=== PATIENT | female | born 1940 | race Two or more races ===

== ENCOUNTER 2024-01-09 10:12 | Inpatient (IN) | payer MEDICARE, OTHER ==
[~2024-01-09] VITALS: Ht 157.5 cm; Wt 58.4 kg
--- NOTE | 2024-01-09 10:21 | ED.PDOC ---
GI ASSESSMENT HPI Comments 83 y.o female with PMH of HTN, CKD, and thyroid disease, presents to the ED for a chief complaint of rectal bleeding and pain that started 2 weeks ago s/p lifting a heavy object. Patient reports bleeding is constant when using the restroom, described as red and is painful, considered sharp in nature. Patient denies any abdominal pain, fever, chills, nausea, vomiting, diarrhea. 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 History Family History Family History: Reviewed,noncontributory to illness, No family hx of Cancer, No family hx of DM, No family hx of Heart micky, No family hx of HTN, No family hx ofKidney micky, No family hx of Liver micky, No family hx of Lung micky, No family hx of Stroke Social History Smoker: Non-Smoker Alcohol: Denies ETOH Use Drugs: Denies Drug Use Lives In: Home Constitutional: denies: chills, diaphoresis, fatigue, fever, malaise, sweats, weakness, others EENTM: denies: blurred vision, double vision, ear bleeding, ear discharge, ear drainage, ear pain, ear ringing, eye pain, eye redness, hearing loss, mouth pain, mouth swelling, nasal discharge, nose bleeding, nose congestion, nose pain, photophobia, tearing, throat pain, throat swelling, voice changes, others Respiratory: denies: cough, hemoptysis, orthopnea, SOB at rest, shortness of breath, SOB with excertion, stridor, wheezing, others Cardiovascular: denies: chest pain, dizzy spells, diaphoresis, Dyspnea on exertion, edema, irregular heart beat, left arm pain, lightheadedness, palpitations, PND, syncope, others Gastrointestinal: reports: rectal bleeding, rectal pain; denies: abdomen distended, abdominal pain, blood streaked bowels, constipated, diarrhea, dysphagia, difficulty swallowing, hematemesis, melena, nausea, poor appetite, poor fluid intake, vomiting, others Genitourinary: denies: abnormal vagina bleeding, burning, dyspareunia, dysuria, flank pain, frequency, hematuria, incontinence, pain, , vagina discharge, urgency, others Neurological: denies: dizziness, fainting, headache, left sided numbness, left sided weakness, numbness, paresthesia, pre-existing deficit, right sided numb ness, right sided weakness, seizure, speech problems, tingling, tremors, weakness, others Musculoskeletal: denies: back pain, gout, joint pain, joint swelling, muscle pain, muscle stiffness, neck pain, others Integumetry: denies: bruises, change in color, change in hair/nails, dryness, laceration, lesions, lumps, rash, wounds, others Allergic/Immunocompromised: denies: Difficulty Healing, Frequent Infections, Hives, Itching, others Hematologic/Lymphatic: denies: anemia, blood clots, easy bleeding, easy bruising, swollen glands, others Endocrine: denies: excessive hunger, excessive sweating, excessive thirst, excessive urination, flushing, intolerance to cold, intolerance to heat, unexplained weight gain, unexplained weight loss, others Psychiatric: denies: anxiety, bipolar disorder, depression, hopeless, panic disorder, schizophrenia, sleepless, suicidal, others All Other Systems: Reviewed and Negative Physical Exam General Appearance: Mild Distress HEENT: Normal ENT Inspection, Pharynx Normal, TMs Normal Neck: Full Range of Motion, Non-Tender, Normal, Normal Inspection Respiratory: Chest Non-Tender, Lungs Clear, No Accessory Muscle Use, No Respiratory Distress, Normal Breath Sounds Cardiovascular: No Edema, No JVD, No Murmur, No Gallop, Normal Peripheral Pulses, Regular Rate/Rhythm Breast Exam: Deferred Gastrointestinal: No Organomegaly, Non Tender, No Pulsatile Mass, Normal Bowel Sounds, Soft Genitalia: Deferred Pelvic: Deferred Rectal: Deferred Extremities: No calf tenderness, Normal capillary refill, Normal inspection, Normal range of motion, Non-tender, No pedal edema Musculoskeletal : Apperance: Normal Neurologic: Alert, cathode ray tube assembler II-XII nml as Tested, No Motor Deficits, Normal Affect, Normal Mood, No Sensory Deficits Cerebellar Function: Normal Reflexes: Normal Skin: Dry, Normal Color, Warm Lymphatic: No Adenopathy Was a procedure done? Was a procedure done?: No GI differential Dx Differential Diagnosis: Esophageal rupture, Gastritis/PUD, Impaction, Esophageal Varicies X-Ray, Labs, Meds, VS Vital Signs Date Time Temp Pulse Resp B/P (MAP) Pulse Ox O2 Delivery O2 Flow Rate FiO2 01/09/24 11:30 99.0 66 16 168/90 (116) 97 99.0 01/09/24 11:30 66 16 97 01/09/24 10:25 99.4 78 18 150/91 (110) 95 Lab Test 01/09/24 11:20 Range/Units White Blood Count 6.5 4.4-10.8 10^3/uL Red Blood Count 4.75 4.0-5.20 10^6/uL Hemoglobin 14.7 12.2-16.2 g/dL Hematocrit 42.9 36.0-46.0 % Mean Corpuscular Volume 90.4 80.0-100.0 fL Mean Corpuscular Hemoglobin 30.9 28.0-32.0 pg Mean Corpuscular Hemoglobin Concent 34.2 32.0-36.0 g/dL Red Cell Distribution Width 13.2 11.8-14.3 % Platelet Count 279 140-450 10^3/uL Mean Platelet Volume 7.2 6.9-10.8 fL Neutrophils (%) (Auto) 71.9 37.0-80.0 % Lymphocytes (%) (Auto) 21.4 10.0-50.0 % Monocytes (%) (Auto) 5.7 0.0-12.0 % Eosinophils (%) (Auto) 0.5 0.0-7.0 % Basophils (%) (Auto) 0.5 0.0-2.0 % Neutrophils # (Auto) 4.7 1.6-8.6 10 ^3/uL Lymphocytes # (Auto) 1.4 0.4-5.4 10 ^3/uL Monocytes # (Auto) 0.4 0-1.3 10 ^3/uL Eosinophils # (Auto) 0 0-0.8 10 ^3/uL Basophils # (Auto) 0 0-0.2 10 ^3/uL Nucleated Red Blood Cells 0.0 % Prothrombin Time 10.7 9.3-11.8 sec Prothrombin Time INR 1.01 0.9-1.15 Activated Partial Thromboplast Time 25.4 24.5-34.5 SEC Sodium Level 142 136-145 mmol/L Potassium Level 4.6 3.5-5.1 mmol/L Chloride Level 106 98-107 mmol/L Carbon Dioxide Level 32 H 20-31 mmol/L Anion Gap 4 L 5-15 Blood Urea Nitrogen 19 9-23 mg/dL Creatinine 0.78 0.550-1.02 mg/dL Glomerular Filtration Rate Calc 76 >90 mL/min BUN/Creatinine Ratio 24.4 H 10.0-20.0 Serum Glucose 94 74-106 mg/dL Calcium Level 9.9 8.7-10.4 mg/dL Exam: CT CT AB PEL WO CON-NO ORAL OR IV IMPRESSION: 1. No acute abdominal or pelvic finding. 2. Left adnexal cystic lesion measuring 1.5 cm. 3. Multiple bilateral renal cysts. Nonobstructing punctate left intrarenal calculus. The CBC is within normal limits The chemistry panel is within normal limits. At this time, the patient is being admitted to the hospitalist Images Reviewed?: Images reviewed and evaluated by me Time of 1ST Reevaluation: 10:19 Reevaluation 1ST: Unchanged Patient Education/Counseling: Diagnosis, Treatment, Prognosis Family Education/Counseling: No Family Present Departure 1 Departure Time of Disposition: 12:32 Impression: Primary Impression: Lower GI bleed Disposition: ADMITTED INPATIENT Admit to: Med Surg Condition: Fair Critical Care Note Critical Care Time?: No Stability Stability form required: Yes Unstable for transfer: ED Physician Assesment (Clinical assesment) I personally scribed for LAURENT HUNT MD ([email or web address]) on 01/09/24 at 10:21. Electronically submitted by Mary Beth West ([email or web address]). I personally scribed for LAURENT HUNT MD ([email or web address]) on 01/09/24 at 12:13. Electronically submitted by Mary Beth West ([email or web address]). LAURENT HUNT MD Jan 09, 2024 10:21
[2024-01-09 11:37] LABS: Basophils # (auto) 0 10 ^3/uL (0-0.2); Basophils % (auto) 0.5 % (0.0-2.0); Eosinophils # (auto) 0 10 ^3/uL (0-0.8); Eosinophils % (auto) 0.5 % (0.0-7.0); Hematocrit 42.9 % (36.0-46.0); Hemoglobin 14.7 g/dL (12.2-16.2); Lymphocytes # (auto) 1.4 10 ^3/uL (0.4-5.4); Lymphocytes % (auto) 21.4 % (10.0-50.0); Mean Corpuscular Hemoglobin 30.9 pg (28.0-32.0); Mean Corpuscular Hgb Conc. 34.2 g/dL (32.0-36.0); Mean Corpuscular Volume 90.4 fL (80.0-100.0); Monocytes # (auto) 0.4 10 ^3/uL (0-1.3); Monocytes % (auto) 5.7 % (0.0-12.0); Neutrophils # (auto) 4.7 10 ^3/uL (1.6-8.6); Neutrophils % (auto) 71.9 % (37.0-80.0); Platelet Count (auto) 279 10^3/uL (140-450); Red Blood Cells 4.75 10^6/uL (4.0-5.20); Red Cell Distribution Width 13.2 % (11.8-14.3); White Blood Cell 6.5 10^3/uL (4.4-10.8)
[2024-01-09 11:46] LABS: Chloride 106 mmol/L (98-107); Potassium 4.6 mmol/L (3.5-5.1); Sodium 142 mmol/L (136-145)
[2024-01-09 11:47] LABS: Anion Gap 4 (5-15); Calcium 9.9 mg/dL (8.7-10.4); Carbon Dioxide 32 mmol/L (20-31)
--- NOTE | 2024-01-09 11:47 | DVH ---
Exam: CT CT AB PEL WO CON-NO ORAL OR IV History: pain Comparison Study: None available at time of dictation. TECHNIQUE: Multidetector CT of the abdomen and pelvis was performed from lung bases to ischial tubero sities. Imaging was performed without IV contrast using axial images. Coronal and sagittal reformats were obtained from the axial data set by the technologist. Radiation Dose Information: CT Dose: CTDI volume is 5.58 mGy. Dose-length product is 299.37 mGy*cm FINDINGS: Evaluation of solid organs is limited due to lack of intravenous contrast use. Findings: Lung Bases: No acute or significant lung base finding. Normal heart size. Coronary artery calcificat ions. No pleural or pericardial effusion. Liver: The liver is normal in size. No focal lesions. Gallbladder and Biliary Tree: The gallbladder is unremarkable. No biliary ductal dilatation. Spleen: Unremarkable Pancreas: The pancreas is grossly normal in appearance. Adrenal Glands: Unremarkable Kidneys: Multiple right and left left renal cysts. The largest is in the lower pole of the left kidn ey measuring 4.4 cm. There is left renal atrophy. No hydronephrosis. Nonobstructing punctate left ne phrolithiasis. GI Tract: The stomach is grossly normal in appearance. Small bowel and colon are normal in caliber an d distribution. The appendix is not visualized; however, no secondary findings of acute appendicitis identified. Peritoneal cavity: No pneumoperitoneum. No ascites. Lymphadenopathy: No mesenteric, retroperitoneal or periportal lymphadenopathy. Abdominal Wall and Mesentery: Unremarkable. Vasculature: The visualized abdominal aorta is normal in size and caliber. Evaluation of abdominal a nd pelvic vessels is limited due to lack of intravenous contrast. There are atherosclerotic calcifica tions in the aorta. Pelvic Organs: 1.5 cm left adnexal cystic lesion. Uterus is grossly unremarkable for patient's stated age. Urinary Bladder: Grossly unremarkable for degree of distention. Musculoskeletal: No aggressive focal bony lesions, acute fractures or dislocation. S shaped scoliosis . Soft tissues: Unremarkable IMPRESSION: 1. No acute abdominal or pelvic finding. 2. Left adnexal cystic lesion measuring 1.5 cm. 3. Multiple bilateral renal cysts. Nonobstructing punctate left intrarenal calculus. Radiation optimization: All CT scans at this facility use at least one of these dose optimization judit hniques: automated exposure control mA and/or kV adjustment per patient size (includes targeted exam s where dose is matched to clinical indication) or iterative reconstruction.
[2024-01-09 11:52] LABS: BUN/Creatinine Ratio 24.4 (10.0-20.0); Blood Urea Nitrogen 19 mg/dL (9-23); Glucose 94 mg/dL (74-106)
[2024-01-09 12:00] LABS: INR 1.01 (0.9-1.15); Partial Thromboplastin Time 25.4 SEC (24.5-34.5); Prothrombin Time 10.7 sec (9.3-11.8)
[2024-01-09] MEDS: cloNIDine HCL 0.1 MG TAB PO ONE (14:41)
[2024-01-09] MEDS ORDERED: MORPHINE SULFATE INJ 2 MG/ml SYRG IV PRN ×2 (21:30)
[2024-01-09] MEDS ORDERED: NITROGLYCERIN 0.4 MG SL TAB SL PRN (21:30)
[2024-01-09] MEDS ORDERED: ACETAMINOPHEN 325 MG TAB PO PRN (21:30)
[2024-01-09] MEDS ORDERED: LABETALOL HCL 20 MG/4 ML VL IV PRN (21:30)
[2024-01-09] MEDS ORDERED: ONDANSETRON HCL 4 MG/2 ML VIAL IV PRN (21:30)
[2024-01-09] MEDS ORDERED: DOCUSATE SOD 100 MG CAP PO PRN (21:30)
--- NOTE | 2024-01-09 21:56 | DVHHPRES ---
History of Present Illness Resident Creating Document: DAVE BUCKLEY RESIDENT History of Present Illness EDWIN VALENTIN is a 83 years old female with a PMH of HTN, CKD, HLD, CHF and thyroid disorder status post thyroidectomy presented to the ED with the chief complaints of rectal bleeding and pain during defecation for weeks prior to admission. Patient reported her bleeding is constant while defecation which is bright light, burning to sharp pain without abdominal pain, fever, chills, nausea, vomiting, diarrhea and other acute associated symptoms. Past Medical History HTN, CKD, HLD, CHF and thyroid disorder status post thyroidectomy Past Surgical History Thyroidectomy Family History Reviewed, noncontributory Past Social History Lives with family. Denies smoking, alcohol and other drug abuse Review of Systems Constitutional: No: Fever, Chills, Sweats, Weakness, Malaise, Other Eyes: No: Pain, Vision change, Conjunctivae inflammation, Eyelid inflammation, Other, Redness ENT: No: Ear pain, Ear discharge, Nose pain, Nose discharge, Nose congestion, Mouth pain, Mouth swelling, Throat pain, Throat swelling, Other Respiratory: No: Cough, Dry, Shortness of breath, SOB with excertion, Wheezing, Hemoptysis, Pleuritic Pain, Sputum, Wheezing, Other Cardiovascular: No: Chest Pain, Palpitations, Orthopnea, Paroxysmal Noc. Dyspnea, Edema, Lt Headedness, Other Gastrointestinal: Other (Rectal bleeding and rectal pain) Genitourinary: No Dysuria, No Frequency, No Incontinence, No Hematuria, No Retention, No Other Musculoskeletal: No: other, neck pain, shoulder pain, arm pain, back pain, hand pain, leg pain, foot pain Skin: No: Rash, Lesions, Jaundice, Bruising, Other Neurological: No: Weakness, Numbness, Incoordination, Change in speech, Confusion, Seizures, Other Allergies: Coded Allergies: Acetaminophen (Verified Allergy, Severe, 01/09/24) Hydrocodone (Verified Allergy, Severe, 01/09/24) Medications Current Medications Medications Dose Ordered Sig/Stevan Route Start Time Stop Time Status Last Admin Dose Admin Sodium Chloride 10 ml Q8HR IV 01/09/24 22:00 Acetaminophen 325 mg Q4HP PRN PO 01/09/24 21:30 Hold Ondansetron HCl 4 mg Q4HP PRN IV 01/09/24 21:30 Docusate Sodium 100 mg BIDPRN PRN PO 01/09/24 21:30 Morphine Sulfate 2 mg Q4HPRN PRN IV 01/09/24 21:30 Hold Nitroglycerin 0.4 mg Q5MINP PRN SL 01/09/24 21:30 Morphine Sulfate 2 mg Q30M PRN IV 01/09/24 21:30 Hold Labetalol HCl 10 mg Q2HPRN PRN IV 01/09/24 21:30 Exam Vital Signs Vital Signs Date Time Temp Pulse Resp B/P (MAP) Pulse Ox O2 Delivery O2 Flow Rate FiO2 01/09/24 18:55 98.2 59 16 122/76 (91) 96 98.2 01/09/24 16:52 Room Air Exam Pt is lying on bed General Appearance: Alert, Oriented X3, Cooperative, Not in acute distress HEENT: Atraumatic, Mucous membranes moist/pink Respiratory: Clear to auscultation, Normal air movement, No added sounds Cardiovascular: Regular rate, Normal S1, Normal S2, No murmurs Abdominal: Active bowel sounds, Soft, no distention, no tenderness Extremities: No edema, Normal pulses, No tenderness/swelling Skin: No Significant rash, except past surgical scars Neuro: Normal speech, sensorimotor deficits none Psych/Mental Status: Mental status NL, Mood NL Rectal Exam: Small globe likely tag(hemorrhoid) visible on the Anus which is slight purple, irreducible, rectal tone is normal, no masses palpable inside the rectum, collected stool for the FOB Nurse was there as sharperone during examination Labs/Xrays Labs Test 01/09/24 11:20 Range/Units White Blood Count 6.5 4.4-10.8 10^3/uL Red Blood Count 4.75 4.0-5.20 10^6/uL Hemoglobin 14.7 12.2-16.2 g/dL Hematocrit 42.9 36.0-46.0 % Mean Corpuscular Volume 90.4 80.0-100.0 fL Mean Corpuscular Hemoglobin 30.9 28.0-32.0 pg Mean Corpuscular Hemoglobin Concent 34.2 32.0-36.0 g/dL Red Cell Distribution Width 13.2 11.8-14.3 % Platelet Count 279 140-450 10^3/uL Mean Platelet Volume 7.2 6.9-10.8 fL Neutrophils (%) (Auto) 71.9 37.0-80.0 % Lymphocytes (%) (Auto) 21.4 10.0-50.0 % Monocytes (%) (Auto) 5.7 0.0-12.0 % Eosinophils (%) (Auto) 0.5 0.0-7.0 % Basophils (%) (Auto) 0.5 0.0-2.0 % Neutrophils # (Auto) 4.7 1.6-8.6 10 ^3/uL Lymphocytes # (Auto) 1.4 0.4-5.4 10 ^3/uL Monocytes # (Auto) 0.4 0-1.3 10 ^3/uL Eosinophils # (Auto) 0 0-0.8 10 ^3/uL Basophils # (Auto) 0 0-0.2 10 ^3/uL Nucleated Red Blood Cells 0.0 % Prothrombin Time 10.7 9.3-11.8 sec Prothrombin Time INR 1.01 0.9-1.15 Activated Partial Thromboplast Time 25.4 24.5-34.5 SEC Sodium Level 142 136-145 mmol/L Potassium Level 4.6 3.5-5.1 mmol/L Chloride Level 106 98-107 mmol/L Carbon Dioxide Level 32 H 20-31 mmol/L Anion Gap 4 L 5-15 Blood Urea Nitrogen 19 9-23 mg/dL Creatinine 0.78 0.550-1.02 mg/dL Glomerular Filtration Rate Calc 76 >90 mL/min BUN/Creatinine Ratio 24.4 H 10.0-20.0 Serum Glucose 94 74-106 mg/dL Calcium Level 9.9 8.7-10.4 mg/dL Assessment/Plan Assessment/Plan # Rectal bleeding likely External hemorrhoids # Thrombosed hemorrhoid -CT abdominal pelvis showed no acute findings -monitor lab -clear liquid diet and protonix -encouraged fiber diet and laxatives -Rectal Exam showed Small globe likely tag(hemorrhoid) visible on the Anus which is slight purple, irreducible, rectal tone is normal, no masses palpable inside the rectum, -collected stool for the FOB # hypertensive urgency -continuously monitor blood pressure -given 1 dose of clonidine -continue home medication Clear liquid diet Protonix No VTE PPX as patient is bleeding Reconcile home meds Goals of care discussed with the patient for more than 27 minutes: Full code status Case discussed with Dr. Darnell, patient and nurse Plan discussed with: Patient, Other (RN) My Orders Orders - DAVE BUCKLEY Procedure Category Date Status Time Admit ADMIT 01/09/24 Transmitted 21:19 Allergies [place] 01/09/24 In Process 21:19 Code Status CODE 01/09/24 Transmitted 21:19 Sodium Chloride Lock PHA 01/09/24 In Process (Saline Lock Ns) 22:00 Acetaminophen Tablet PHA 01/09/24 In Process (Tylenol Tablet) 21:30 Ondansetron Hcl PHA 01/09/24 In Process (Zofran) 21:30 Docusate Sodium PHA 01/09/24 In Process Capsule (Colace 21:30 Morphine Sulfate PHA 01/09/24 In Process Injection 21:30 Nitroglycerin PHA 01/09/24 In Process Sublingual (Ntrostat 21:30 Morphine Sulfate PHA 01/09/24 In Process Injection 21:30 Oxygen By Nasal RT 01/09/24 Transmitted Cannula 21:19 Stat Ekg For Chest [place] 01/09/24 In Process Pain 21:19 Notify Md Of Changes [facility] 01/09/24 In Process From Base 21:19 Rv Body Mechanic For [facility] 01/09/24 In Process 24 Hours 21:19 Emergency Dysrhythmia [facility] 01/09/24 In Process Protocol 21:19 Rhythm Strips Once [facility] 01/09/24 In Process Every Shift 21:19 Labetalol Hcl PHA 01/09/24 In Process (Labetalol Hcl) 21:30 Drug Screen LAB 01/09/24 Logged 21:50 Hemoglobin A1c LAB 01/09/24 Logged 21:50 Vitamin D, 25-Hydroxy LAB 01/09/24 Logged 21:50 Vitamin B12 LAB 01/09/24 Logged 21:50 Urinalysis LAB 01/09/24 Logged 21:50 Thyroid Stimulating LAB 01/09/24 Logged Hormone 21:50 Stool Occult Blood LAB 01/09/24 Logged 21:50 B-Type Natriuretic LAB 01/09/24 Logged Peptide 21:52 Pantoprazole PHA 01/10/24 Transmitted (Protonix) 10:00 Date of Service: Jan 09, 2024 Billing Provider: HALEIGH DARNELL MD Common Visit Codes: 84735-QIBMKZD INP/OBS CARE (HIGH) Secondary Visit Codes: 70933-[id number] CARE PLAN 30 MINUTES DAVE BUCKLEY RESIDENT Jan 09, 2024 21:56 HALEIGH DARNELL MD Jan 10, 2024 10:20
[2024-01-09] MEDS: SODIUM CHLOR 0.9% PF (SALINE LOCK) 10ML VIAL/SYR IV SCH (22:09)
[2024-01-10] VITALS (8 sets, daily range): BP systolic 116–159; BP diastolic 67–77; PULSE 54–76; RESP 15–20; TEMP 97.4–98.9; O2SAT 92–100
[2024-01-10] MEDS: PANTOPRAZOLE 40 MG/10 ML VIAL INJ IV SCH (10:00)
[2024-01-10] MEDS ORDERED: LEVO50TA7 PO (10:51)
[2024-01-10] MEDS: LEVOTHYROXINE SODIUM 50 MCG TAB PO ONE (12:40)
[2024-01-10] MEDS: LISINOPRIL 5 MG TAB PO ONE (12:41)
--- NOTE | 2024-01-10 12:49 | DVH ---
CHEST RADIOGRAPH Indication:Pneumonia Technique: Single frontal view of the chest was obtained COMPARISON: None FINDINGS: Lines and Tubes: None Lungs: Clear Pleura: No effusion. No pneumothorax. Cardiomediastinal contours: Tortuous descending thoracic aorta. Vascular calcifications of the aorta . Bones: Unremarkable IMPRESSION: No acute disease.
--- NOTE | 2024-01-10 14:13 | DVH ---
INDICATION: Cystic mass TECHNIQUE: Multiple real-time grayscale transabdominal sonographic images along with color and duplex Doppler of the uterus and ovaries were obtained. COMPARISON: CT abdomen pelvis 01/09/2024 FINDINGS: The uterus measures 4.3 x 3.1 x 2.1 cm. The endometrial stripe measures 0.5 cm. The bilateral ovaries are not definitively identified. In the region of the left adnexa, there is a c ystic structure measuring 1.7 x 1.2 x 1.5 cm. No free fluid is identified. IMPRESSION: 1. Limited evaluation, with nonvisualization of the bilateral ovaries. 2. Left adnexal cystic lesion measuring 1.7 cm. 3. Endometrium measuring 0.5 cm in thickness, upper limit of normal for a postmenopausal patient. HS:Y
[2024-01-10 14:33] LABS: Albumin 4.1 g/dL (3.2-4.8); Bilirubin, Total 1.4 mg/dL (0.2-1.0); Total Protein 6.6 g/dL (5.7-8.2)
[2024-01-10 15:03] LABS: Bilirubin, Direct 0.2 mg/dL (<0.3)
[2024-01-10 15:30] LABS: Urine Bacteria None Seen /hpf (None Seen)
[2024-01-10 15:36] LABS: Urine Blood Negative /uL (Negative); Urine Clarity Clear (Clear); Urine Color Light-Yellow (Yellow); Urine Protein, UAD Negative (Negative); Urine Specific Gravity 1.007 (1.001-1.035); Urine Urobilinogen Normal (Negative); Urine WBC <1 /hpf (0 - 5)
[2024-01-10 15:50] LABS: Amphetamine Screen, Urine Neg (NEGATIVE); Barbiturate Scree,Urine Neg (NEGATIVE); Benzodiazephine Screen, Urine Neg (NEGATIVE); Cannabinoid Screen, Urine Neg (NEGATIVE); Cocaine Screen, Urine Neg (NEGATIVE); Opiate Scree,Urine Neg (NEGATIVE); Phencyclidine Screen, Urine Neg (NEGATIVE)
--- NOTE | 2024-01-10 15:52 | DVHINCON2 ---
Date of service: Jan 10, 2024 Family History: Thyroid disease Allergies: Coded Allergies: Acetaminophen (Verified Allergy, Severe, 01/09/24) Hydrocodone (Verified Allergy, Severe, 01/09/24) Home Meds Reported Medications Levothyroxine Sodium (Levothyroxine Sodium) 50 Mcg Tab, 50 MCG PO QAM for 30 Days, MCG 01/10/24 Current Medications Current Medications Medications (Trade) Dose Ordered Sig/Stevan Route PRN Reason Start Time Stop Time Status Last Admin Sodium Chloride (Saline Lock Ns) 10 ml Q8HR IV 01/09/24 22:00 01/10/24 14:00 Acetaminophen (Tylenol Tablet) 325 mg Q4HP PRN PO MILD PAIN (1-3 PAIN SCALE) 01/09/24 21:30 01/10/24 11:42 DC Ondansetron HCl (Zofran) 4 mg Q4HP PRN IV NAUSEA / VOMITING 01/09/24 21:30 Docusate Sodium (Colace Capsule) 100 mg BIDPRN PRN PO FOR CONSTIPATION 01/09/24 21:30 Morphine Sulfate 2 mg Q4HPRN PRN IV SEVERE PAIN (7-10 PAIN SCALE) 01/09/24 21:30 Hold Nitroglycerin (Ntrostat Sublingual) 0.4 mg Q5MINP PRN SL FOR CHEST PAIN 01/09/24 21:30 Morphine Sulfate 2 mg Q30M PRN IV FOR CHEST PAIN 01/09/24 21:30 Hold Labetalol HCl (Labetalol HCl) 10 mg Q2HPRN PRN IV SBP>150 01/09/24 21:30 01/10/24 11:42 DC Pantoprazole Sodium (Protonix) 40 mg DAILY IV 01/10/24 10:00 Lisinopril (Zestril Tablet) 10 mg DAILY PO 01/11/24 10:00 Hydralazine HCl (Apresoline Injection) 10 mg Q6HP PRN IV SBP>150 01/10/24 12:30 Levothyroxine Sodium (Synthroid Tablet) 50 mcg QAM@0600 PO 01/11/24 06:00 Vital Signs Vital Signs Date Time Temp Pulse Resp B/P (MAP) Pulse Ox O2 Delivery O2 Flow Rate FiO2 01/10/24 13:00 98.9 76 17 140/71 (94) 92 98.9 01/10/24 08:00 Room Air* 0 21 Labs/Diagnostic Data Labs Test 01/10/24 14:36 01/10/24 13:56 01/10/24 11:15 01/10/24 06:00 Range/Units Urine Color Light-yellow Yellow Urine Clarity Clear Clear Urine pH 6.0 5.0-9.0 Urine Specific [place] 1.007 1.001-1.035 Urine Protein Negative Negative Urine Ketones Negative Negative Urine Blood Negative Negative /uL Urine Nitrite Negative Negative Urine Bilirubin Negative Negative Urine Urobilinogen Normal Negative mg/dL Urine Leukocyte Esterase Negative Negative /uL Urine RBC <1 0 - 4 /hpf Urine WBC <1 0 - 5 /hpf Urine Squamous Epithelial Cells None seen <5 /hpf Urine Bacteria None seen None Seen /hpf Urine Glucose Normal Normal mg/dL Total Bilirubin 1.4 H 0.2-1.0 mg/dL Direct Bilirubin 0.2 <0.3 mg/dL Aspartate Amino Transferase (AST) 30 13-40 U/L Alanine Aminotransferase (ALT) 16 7-40 U/L Alkaline Phosphatase 59 46-116 U/L Total Protein 6.6 5.7-8.2 g/dL Albumin 4.1 3.2-4.8 g/dL Hemoglobin A1c 5.5 <5.7 % A1C Vitamin B12 Level 434 211-911 pg/mL Vitamin D 25-Hydroxy 34.9 30.0-100 ng/mL Thyroid Stimulating Hormone (TSH) 4.32 0.55-4.78 uIU/mL Stool Occult Blood Negative Negative Stool Occult Blood Sample #3 Negative Test 01/09/24 11:20 Range/Units White Blood Count 6.5 4.4-10.8 10^3/uL Red Blood Count 4.75 4.0-5.20 10^6/uL Hemoglobin 14.7 12.2-16.2 g/dL Hematocrit 42.9 36.0-46.0 % Mean Corpuscular Volume 90.4 80.0-100.0 fL Mean Corpuscular Hemoglobin 30.9 28.0-32.0 pg Mean Corpuscular Hemoglobin Concent 34.2 32.0-36.0 g/dL Red Cell Distribution Width 13.2 11.8-14.3 % Platelet Count 279 140-450 10^3/uL Mean Platelet Volume 7.2 6.9-10.8 fL Neutrophils (%) (Auto) 71.9 37.0-80.0 % Lymphocytes (%) (Auto) 21.4 10.0-50.0 % Monocytes (%) (Auto) 5.7 0.0-12.0 % Eosinophils (%) (Auto) 0.5 0.0-7.0 % Basophils (%) (Auto) 0.5 0.0-2.0 % Neutrophils # (Auto) 4.7 1.6-8.6 10 ^3/uL Lymphocytes # (Auto) 1.4 0.4-5.4 10 ^3/uL Monocytes # (Auto) 0.4 0-1.3 10 ^3/uL Eosinophils # (Auto) 0 0-0.8 10 ^3/uL Basophils # (Auto) 0 0-0.2 10 ^3/uL Nucleated Red Blood Cells 0.0 % Prothrombin Time 10.7 9.3-11.8 sec Prothrombin Time INR 1.01 0.9-1.15 Activated Partial Thromboplast Time 25.4 24.5-34.5 SEC Sodium Level 142 136-145 mmol/L Potassium Level 4.6 3.5-5.1 mmol/L Chloride Level 106 98-107 mmol/L Carbon Dioxide Level 32 H 20-31 mmol/L Anion Gap 4 L 5-15 Blood Urea Nitrogen 19 9-23 mg/dL Creatinine 0.78 0.550-1.02 mg/dL Glomerular Filtration Rate Calc 76 >90 mL/min BUN/Creatinine Ratio 24.4 H 10.0-20.0 Serum Glucose 94 74-106 mg/dL Calcium Level 9.9 8.7-10.4 mg/dL B-Type Natriuretic Peptide 57.66 0-100 pg/mL Assessment [id number] PROLAPSED THROMBOSED HEMORRHOID ATTEMPT MANUAL REDUCTION CLOSE OBSERVATION AVOID CONSTIPATION LORI SUMIT CONSIDER SURGERY BASED ON ONGOING EVAL Plan discussed with: Patient DIANNE MENESES MD Jan 10, 2024 15:52
--- NOTE | 2024-01-10 19:03 | DVHPNRES ---
Progress Note Date Seen: Jan 10, 2024 Resident Creating Document: SUKHJINDER BHATT AMAN Has the PT tested + for MRSA If YES, has PT been informed?: No Medical Necessity Reason Pt with a Central, PICC or Fol: No Subjective Review of Systems EDWIN VALENTIN is an 83-year-old female with a PMH of HTN, CKD, HLD, CHF, and thyroid disorder status post thyroidectomy. She presented to the ED with the chief complaints of rectal bleeding and pain during defecation for the past 2 weeks. According to the patient, she had one episode of bright bleeding during stool passage 2 weeks ago but has had pain in the perineal area, which increases during defecation. The patient denies abdominal pain, fever, chills, nausea, vomiting, diarrhea, and other acute associated symptoms. Past Medical History: HTN, CKD, HLD, CHF, and thyroid disorder status post thyroidectomy Past Surgical History: Thyroidectomy Family History: Noncontributory Social History: Lives alone at home, denies smoking, alcohol, and any other drug use Home Medications: Lisinopril 10 mg, levothyroxine 50 mcg Allergic History: Allergic to acetaminophen and hydrocodone On examination, there was a painful purple-colored bulging and annular area. During admission to the ED, vital signs were within normal limits except for BP 150/91. Lab studies showed bilirubin at 1.4, otherwise, the rest of the studies, including CBC, CMP, coagulation profile, urinalysis, urine drug screen, and stool occult blood, were within normal limits. A CT scan showed no acute abdominal or pelvic findings but revealed a left adnexal cystic lesion measuring 1.5 cm, multiple bilateral renal cysts, and a nonobstructing punctate left intrarenal calculus. A pelvic ultrasound showed a left adnexal cystic lesion measuring 1.7 cm. The chest X-ray was normal. The patient was seen and examined at the bedside. She is feeling better since admission but is still complaining of pain in the perirectal area. Patient reports: No new complaints, Feels better Changes from previous H/P or p: Changes Objective vital signs Vital Sign Date Time Temp Pulse Resp B/P (MAP) Pulse Ox O2 Delivery O2 Flow Rate FiO2 01/10/24 17:00 98.3 57 17 124/77 (93) 95 98.3 01/10/24 08:00 Room Air* 0 21 Total Intake and Output 01/09/24 01/09/24 01/10/24 15:00 23:00 07:00 Intake Total 200 ml Balance 200 ml medications Current Medications Medications Dose Ordered Sig/Stevan Route Start Time Stop Time Status Last Admin Dose Admin Sodium Chloride 10 ml Q8HR IV 01/09/24 22:00 01/10/24 14:00 10 ML Ondansetron HCl 4 mg Q4HP PRN IV 01/09/24 21:30 Docusate Sodium 100 mg BIDPRN PRN PO 01/09/24 21:30 Morphine Sulfate 2 mg Q4HPRN PRN IV 01/09/24 21:30 Hold Nitroglycerin 0.4 mg Q5MINP PRN SL 01/09/24 21:30 Morphine Sulfate 2 mg Q30M PRN IV 01/09/24 21:30 Hold Pantoprazole Sodium 40 mg DAILY IV 01/10/24 10:00 Lisinopril 10 mg DAILY PO 01/11/24 10:00 Hydralazine HCl 10 mg Q6HP PRN IV 01/10/24 12:30 Levothyroxine Sodium 50 mcg QAM@0600 PO 01/11/24 06:00 Examination General Appearance: An elderly female lying on the bed with stress due to pain HEENT: Atraumatic, PERRLA, EOMI, Mucous membrane moist/pink Respiratory: Clear to auscultation, Normal air movement Cardiovascular: Regular rate, Normal S1, Normal S2, No murmurs, no chest wall tenderness Abdominal: Normal bowel sounds, Soft, No tenderness, No hepatosplenomegaly, No masses Rectal Exam: Small globe likely tag(hemorrhoid) visible on the Anus which is slight purple, irreducible, rectal tone is normal, no masses palpable inside the rectum, collected stool for the FOB Extremities: No clubbing, No cyanosis, No edema, Normal pulses, No tenderness/swelling Skin: No rashes, No breakdown, No significant lesion laboratory and microbiology Laboratory Tests 01/09/24 11:20 Test 01/09/24 11:20 Range/Units Serum Glucose 94 74-106 mg/dL Labs and/or images reviewed: Labs reviewed by me, Image(s) reviewed by me Problem List/Assessment/Plan Problem List/Assessment/Plan Rectal bleeding likely External hemorrhoids Prolapse thrombosed hemorrhoid Rectal Exam showed Small globe likely tag(hemorrhoid) visible on the Anus which is slight purple, irreducible, rectal tone is normal, no masses palpable inside the rectum, Surgery is on the board, and manually reduced, we will observe it for the requirement of his surgery CT abdominal pelvis showed no acute findings Sitz bath Laxative Topical lidocaine Check stool occult blood Uncontrolled hypertension, currently controlled Continue home medicine Hypothyroidism Continue levothyroxine Vitamin-D deficiency Supplemented Vitamin B12 deficiency Supplement Left adnexal cystic lesion measuring 1.[address] scan finding follow up on outpatient basis Multiple bilateral renal cysts CT scan finding Patient outpatient basis Nonobstructing punctate left intrarenal calculus CT scan finding Diet Clear liquid diet Stress ulcer prevention Protonix DVT prophylaxis Due to bleeding, Lovenox was not complicated SCD Code status Full Code Case discussed with Dr. Darnell Plan discussed with: Patient, Other (On) My Orders My Orders Orders - SUKHJINDER BHATT Procedure Category Date Status Time Acute Hepatitis Panel LAB 01/10/24 In Process 12:06 Pelvic US 01/10/24 Resulted 12:06 Chest Xray 1 View XY 01/10/24 Resulted 12:06 Lisinopril Tablet PHA 01/11/24 In Process (Zestril Tablet) 10:00 Hydralazine Injection PHA 01/10/24 In Process (Apresoline Inject 12:30 Levothyroxine Tablet PHA 01/11/24 In Process (Synthroid Tablet) 06:00 Lidocaine 2% Topical PHA 01/10/24 Logged Jelly (Lidocaine Hc 18:30 Lidocaine 2% Topical PHA 01/10/24 Transmitted Jelly (Lidocaine Hc 18:30 Date of Service: Jan 10, 2024 Billing Provider: HALEIGH DARNELL MD Common Visit Codes: [id number] INP/OBS CARE(HIGH) SUKHJINDER BHATT RESDIOPHELIA Jan 10, 2024 19:03 HALEIGH DARNELL MD Jan 11, 2024 12:40
--- NOTE | 2024-01-10 20:17 | DVHINCON2 ---
DATE OF CONSULTATION: 01/10/2024 HISTORY OF PRESENT ILLNESS: This patient is 83 years old, coming in with rectal pain, some bleeding, but not anymore. She has a swelling in the rectal area as well. PAST MEDICAL HISTORY: Hypertension, CKD, HLD, CHF, thyroid disorder, status post thyroidectomy. PAST SURGICAL HISTORY: Thyroidectomy. PHYSICAL EXAMINATION: VITAL SIGNS: Afebrile, stable signs. HEENT: With no evidence of pallor, cyanosis, or jaundice. NECK: Supple, nontender with no thyromegaly or lymphadenopathy. CHEST AND LUNGS: Clear. HEART: Within normal limits. ABDOMEN: Soft. NEUROLOGIC: Not assessed. RECTAL: Reveals a prolapsed thrombosed hemorrhoid. PLAN: The plan will be to attempt manual reduction. If successful, she can be managed conservatively and then possible hemorrhoid surgery based upon ongoing evaluation. MD SUBHASH Gagnon TID: [id number] RECEIPT: [id number] cc: Dr. Guevara Chen
[2024-01-10] MEDS: ERGOCALCIFEROL 50,000 UNIT(1.25MG) CAP PO SCH (20:41)
[2024-01-10] MEDS: CYANOCOBALAMIN (B-12) 1000 MCG/1 ML VIAL IM ONE (20:49)
[2024-01-11] VITALS (7 sets, daily range): BP systolic 84–152; BP diastolic 50–85; PULSE 57–92; RESP 15–19; TEMP 97.9–98.7; O2SAT 93–96
[2024-01-11] MEDS ORDERED: LIDOCAINE 2% TOPICAL JELLY 5 ML URJT TOP PRN (00:30)
[2024-01-11] MEDS: LEVOTHYROXINE SODIUM 50 MCG TAB PO SCH (06:01)
[2024-01-11] MEDS: LISINOPRIL 5 MG TAB PO SCH (10:00)
--- NOTE | 2024-01-11 15:55 | DVHPNRES ---
Progress Note Date Seen: Jan 11, 2024 Resident Creating Document: IGNACIA MORALES RESIDENT Has the PT tested + for MRSA If YES, has PT been informed?: No Medical Necessity Reason Pt with a Central, PICC or Fol: No Subjective Review of Systems Patient seen and examined at bedside. She is currently mentioning of mild rectal pain, but denies any active bleeding Patient has no other symptoms ROS Constitutional: No: Fever, Chills, Sweats, Weakness, Malaise, Other Eyes: No: Pain, Vision change, Conjunctivae inflammation, Eyelid inflammation, Other, Redness ENT: No: Ear pain, Ear discharge, Nose pain, Nose discharge, Nose congestion, Mouth pain, Mouth swelling, Throat pain, Throat swelling, Other Respiratory: No: Cough, Dry, Shortness of breath, SOB with excertion, Wheezing, Hemoptysis, Pleuritic Pain, Sputum, Wheezing, Other Cardiovascular: No: Chest Pain, Palpitations, Orthopnea, Paroxysmal Noc. Dyspnea, Edema, Lt Headedness, Other Gastrointestinal: Rectal pain No: Nausea, Vomiting, Abdominal Pain, Diarrhea, Constipation, Melena, Hematochezia, Other Musculoskeletal: No: other, neck pain, shoulder pain, arm pain, back pain, hand pain, leg pain, foot pain Neurological:; No: Weakness, Numbness, Incoordination, Change in speech, Confusion, Seizures Objective vital signs Vital Sign Date Time Temp Pulse Resp B/P (MAP) Pulse Ox O2 Delivery O2 Flow Rate FiO2 01/11/24 10:00 122/79 01/11/24 09:00 98.4 60 17 96 98.4 01/11/24 08:15 Room Air* 0 21 Total Intake and Output 01/10/24 01/10/24 01/11/24 14:59 22:59 06:59 Intake Total 650 ml 1000 ml Balance 650 ml 1000 ml medications Current Medications Medications Dose Ordered Sig/Stevan Route Start Time Stop Time Status Last Admin Dose Admin Sodium Chloride 10 ml Q8HR IV 01/09/24 22:00 01/11/24 14:01 10 ML Ondansetron HCl 4 mg Q4HP PRN IV 01/09/24 21:30 Docusate Sodium 100 mg BIDPRN PRN PO 01/09/24 21:30 Morphine Sulfate 2 mg Q4HPRN PRN IV 01/09/24 21:30 Hold Nitroglycerin 0.4 mg Q5MINP PRN SL 01/09/24 21:30 Morphine Sulfate 2 mg Q30M PRN IV 01/09/24 21:30 Hold Pantoprazole Sodium 40 mg DAILY IV 01/10/24 10:00 Lisinopril 10 mg DAILY PO 01/11/24 10:00 Hydralazine HCl 10 mg Q6HP PRN IV 01/10/24 12:30 Levothyroxine Sodium 50 mcg QAM@0600 PO 01/11/24 06:00 01/11/24 06:01 50 MCG Lidocaine HCl 5 ml Q8HPRN PRN TOP 01/11/24 00:30 Ergocalciferol 50,000 unit Q7D PO 01/10/24 20:00 01/10/24 20:41 50,000 UNIT Examination Examination General Appearance: Alert, Oriented X3, Cooperative, No acute distress HEENT: EOMI Respiratory: Clear to auscultation, Normal air movement Cardiovascular: Regular rate, Normal S1, Normal S2 Abdominal: Normal bowel sounds Extremities: No cyanosis, No edema, Normal pulses, No tenderness/swelling Skin: No rashes, No breakdown Neuro: Normal speech and tone laboratory and microbiology Laboratory Tests 01/09/24 11:20 Test 01/09/24 11:20 Range/Units Serum Glucose 94 74-106 mg/dL Labs and/or images reviewed: Labs reviewed by me, Image(s) reviewed by me Problem List/Assessment/Plan Problem List/Assessment/Plan #Rectal bleeding/pain likely due to Prolapse thrombosed hemorrhoid CT abdominal pelvis showed no acute findings Surgery on board, plan for surgery tomorrow NPO after midnight # hypertension Continue home medicine Hydralazine q.6 p.r.n. for SBP greater than 150 #Hypothyroidism Continue home medication, levothyroxine #Vitamin-D deficiency Supplemented #Vitamin B12 deficiency Supplement #Left adnexal cystic lesion measuring 1.5 cm -seen on imaging -outpatient follow up #Multiple bilateral renal cysts Seen on imaging Outpatient follow up #Nonobstructing punctate left intrarenal calculus -Seen on imaging -IV fluids DVT prophylaxis Lovenox was not started considering rectal bleeding Continue with SCD Code status discussed with the patient for greater than 21 minutes, Full Code Case discussed with Dr. Salgado Home Health Care Provider consulted as patient has some doubts regarding her medical insurance Plan discussed with: Patient, Other My Orders My Orders Orders - IGNACIA MORALES Procedure Category Date Status Time Cardiac DIET 01/11/24 Transmitted Diet-2gna,Lofat,Lochol Lunch * Home Health Care Provider CONS 01/11/24 Transmitted Consult Up In Chair Georgi HO 01/11/24 In Process 14:43 Date of Service: Jan 11, 2024 Billing Provider: LINN SALGADO DO Common Visit Codes: [id number] INP/OBS CARE(HIGH) IGNACIA MORALES RESIDENT Jan 11, 2024 15:55 LINN SALGADO DO Jan 12, 2024 13:40
--- NOTE | 2024-01-11 16:03 | DVHPN2 ---
Progress Note Date Seen: Jan 11, 2024 Has the PT tested + for MRSA If YES, has PT been informed?: No Medical Necessity Reason Pt with a Central, PICC or Fol: No Objective vital signs Vital Sign Date Time Temp Pulse Resp B/P (MAP) Pulse Ox O2 Delivery O2 Flow Rate FiO2 01/11/24 10:00 122/79 01/11/24 09:00 98.4 60 17 96 98.4 01/11/24 08:15 Room Air* 0 21 Total Intake and Output 01/10/24 01/10/24 01/11/24 15:00 23:00 07:00 Intake Total 650 ml 1000 ml Balance 650 ml 1000 ml medications Current Medications Medications Dose Ordered Sig/Stevan Route Start Time Stop Time Status Last Admin Dose Admin Sodium Chloride 10 ml Q8HR IV 01/09/24 22:00 01/11/24 14:01 10 ML Ondansetron HCl 4 mg Q4HP PRN IV 01/09/24 21:30 Docusate Sodium 100 mg BIDPRN PRN PO 01/09/24 21:30 Morphine Sulfate 2 mg Q4HPRN PRN IV 01/09/24 21:30 Hold Nitroglycerin 0.4 mg Q5MINP PRN SL 01/09/24 21:30 Morphine Sulfate 2 mg Q30M PRN IV 01/09/24 21:30 Hold Pantoprazole Sodium 40 mg DAILY IV 01/10/24 10:00 Lisinopril 10 mg DAILY PO 01/11/24 10:00 Hydralazine HCl 10 mg Q6HP PRN IV 01/10/24 12:30 Levothyroxine Sodium 50 mcg QAM@0600 PO 01/11/24 06:00 01/11/24 06:01 50 MCG Lidocaine HCl 5 ml Q8HPRN PRN TOP 01/11/24 00:30 Ergocalciferol 50,000 unit Q7D PO 01/10/24 20:00 01/10/24 20:41 50,000 UNIT laboratory and microbiology Laboratory Tests 01/09/24 11:20 Test 01/09/24 11:20 Range/Units Serum Glucose 94 74-106 mg/dL Problem List/Assessment/Plan Problem List/Assessment/Plan AFEBRILE VSS RECURRENT PROLAPSED HEMORRHOID PROCEED WITH HEMORRHOIDECTOMY AM Plan discussed with: Patient DIANNE MENESES MD Jan 11, 2024 16:03
[2024-01-12] VITALS (7 sets, daily range): BP systolic 125–157; BP diastolic 78–89; PULSE 58–99; RESP 16–18; TEMP 97.6–98.9; O2SAT 93–98
[2024-01-12] MEDS: hydrALAZINE HCL 20 MG/ML VL IV PRN (08:57)
[2024-01-12 09:13] LABS: Basophils # (auto) 0 10 ^3/uL (0-0.2); Basophils % (auto) 0.6 % (0.0-2.0); Eosinophils # (auto) 0 10 ^3/uL (0-0.8); Eosinophils % (auto) 0.6 % (0.0-7.0); Hematocrit 44.6 % (36.0-46.0); Hemoglobin 15.2 g/dL (12.2-16.2); Lymphocytes # (auto) 1.4 10 ^3/uL (0.4-5.4); Lymphocytes % (auto) 27.4 % (10.0-50.0); Mean Corpuscular Hemoglobin 30.9 pg (28.0-32.0); Mean Corpuscular Hgb Conc. 34.1 g/dL (32.0-36.0); Mean Corpuscular Volume 90.8 fL (80.0-100.0); Monocytes # (auto) 0.4 10 ^3/uL (0-1.3); Monocytes % (auto) 7.1 % (0.0-12.0); Neutrophils # (auto) 3.3 10 ^3/uL (1.6-8.6); Neutrophils % (auto) 64.3 % (37.0-80.0); Nucleated Red Blood Cells % 0.2 %; Platelet Count (auto) 249 10^3/uL (140-450); Red Blood Cells 4.91 10^6/uL (4.0-5.20); Red Cell Distribution Width 12.9 % (11.8-14.3); White Blood Cell 5.2 10^3/uL (4.4-10.8)
[2024-01-12 09:29] LABS: Alanine Aminotransferase 14 U/L (7-40); Alkaline Phosphatase 62 U/L (46-116); Anion Gap 6 (5-15); Aspartate Aminotransferase 17 U/L (13-40); BUN/Creatinine Ratio 18.1 (10.0-20.0); Blood Urea Nitrogen 15 mg/dL (9-23); Calcium 9.4 mg/dL (8.7-10.4); Carbon Dioxide 27 mmol/L (20-31); Chloride 107 mmol/L (98-107); Glucose 95 mg/dL (74-106); Potassium 3.9 mmol/L (3.5-5.1); Sodium 140 mmol/L (136-145)
[2024-01-12 09:30] LABS: Bilirubin, Total 1.1 mg/dL (0.2-1.0); Total Protein 6.9 g/dL (5.7-8.2)
[2024-01-12] MEDS ORDERED: ePHEDrine SULFATE 50 MG/ML AMP IV PRN (13:30)
[2024-01-12] MEDS ORDERED: HYDROmorphone HCL 2 MG/ML VL/or syr IV PRN ×2 (13:30)
[2024-01-12] MEDS ORDERED: NALOXONE HCL 0.4 MG/ML VIAL IV PRN (13:30)
[2024-01-12] MEDS ORDERED: hydrALAZINE HCL 20 MG/ML VL IV PRN (13:30)
[2024-01-12] MEDS: LIDOCAINE 1% HCL (LOCAL ANESTH.) INJ 20ML MDV ONE (14:00)
--- NOTE | 2024-01-12 14:12 | DVHOP2 ---
Operative Report [id number] LEFT THROMBOSED EXT HEMORRHOIDECTOMY EBL 1 CC ONE PACKING GAUZE NO COMPLICATION ANAL SPHINCTER INTACT NO DRAINS DIANNE MENESES MD Jan 12, 2024 14:12
[2024-01-12] MEDS: ONDANSETRON HCL 4 MG/2 ML VIAL IV ONE (14:25)
[2024-01-12] MEDS ORDERED: KETAMINE 50mg/ML 1ml syringe ONE (14:45)
[2024-01-12] MEDS ORDERED: PROPOFOL 10 MG/ML 20 ML IV ONE (14:45)
[2024-01-12] MEDS: LIDOCAINE 2% TOPICAL JELLY 5 ML URJT TOP ONE (15:44)
[2024-01-12] MEDS: LIDOCAINE 2% JELLY 11ml (GLYDO) ONE (15:44)
[2024-01-12] MEDS: NEOMYCIN-BACITRACIN-POLYM 15GM TOP OINT TOP ONE (15:45)
--- NOTE | 2024-01-12 17:28 | DVHOP ---
DATE OF SURGERY: 01/12/2024 PREOPERATIVE DIAGNOSES: Thrombosed external hemorrhoid on the left side. POSTOPERATIVE DIAGNOSES: Thrombosed external hemorrhoid on the left side. PROCEDURE: Examination under anesthesia with hemorrhoidectomy of the thrombosed hemorrhoid in the left side. SURGEON: Ayaan Nelson MD COMPUTER SALESPERSON RETAIL: None. ANESTHESIA: Local IV sedation. DESCRIPTION OF PROCEDURE: The patient was prepped and draped in the usual sterile fashion in the lithotomy position. Lidocaine was infiltrated in the vicinity circumferentially around the anal opening and the thromboid mass was noted on the left side was grasped with a pickup and transected at the base using the LigaSure device and submitted for pathology. The mucosal edges were brought together using a 3-0 Vicryl suture in interrupted fashion. Xeroform packing was applied with Neosporin and lidocaine and the patient tolerated the procedure well and was taken back to the recovery room in a stable condition. Ayaan Nelson MD RG/RUB TID: [id number] RECEIPT: [id number] cc: Pepe Saldivar
--- NOTE | 2024-01-12 17:38 | DVHPNRES ---
Progress Note Date Seen: Jan 12, 2024 Resident Creating Document: SUKHJINDER BHATT AMAN Has the PT tested + for MRSA If YES, has PT been informed?: No Medical Necessity Reason Pt with a Central, PICC or Fol: No Subjective Review of Systems Patient seen and examined at the bedside. Patient is feeling better since admission. Patient did not have any active complaint at the moment. Patient reports: No new complaints Changes from previous H/P or p: Changes Objective vital signs Vital Sign Date Time Temp Pulse Resp B/P (MAP) Pulse Ox O2 Delivery O2 Flow Rate FiO2 01/12/24 16:30 98.0 70 17 157/89 (111) 98 98.0 01/12/24 14:13 Mask 5.0 01/12/24 14:13 97 Total Intake and Output 01/11/24 01/11/24 01/12/24 15:00 23:00 07:00 Intake Total 1100 ml 300 ml Balance 1100 ml 300 ml medications Current Medications Medications Dose Ordered Sig/Stevan Route Start Time Stop Time Status Last Admin Dose Admin Sodium Chloride 10 ml Q8HR IV 01/09/24 22:00 01/12/24 14:03 10 ML Ondansetron HCl 4 mg Q4HP PRN IV 01/09/24 21:30 Docusate Sodium 100 mg BIDPRN PRN PO 01/09/24 21:30 Morphine Sulfate 2 mg Q4HPRN PRN IV 01/09/24 21:30 Hold Nitroglycerin 0.4 mg Q5MINP PRN SL 01/09/24 21:30 Morphine Sulfate 2 mg Q30M PRN IV 01/09/24 21:30 Hold Pantoprazole Sodium 40 mg DAILY IV 01/10/24 10:00 Lisinopril 10 mg DAILY PO 01/11/24 10:00 01/12/24 16:08 10 MG Hydralazine HCl 10 mg Q6HP PRN IV 01/10/24 12:30 01/12/24 08:57 10 MG Levothyroxine Sodium 50 mcg QAM@0600 PO 01/11/24 06:00 01/12/24 16:07 50 MCG Lidocaine HCl 5 ml Q8HPRN PRN TOP 01/11/24 00:30 Ergocalciferol 50,000 unit Q7D PO 01/10/24 20:00 01/10/24 20:41 50,000 UNIT Examination General Appearance: An elderly female lying on the bed with stress due to pain HEENT: Atraumatic, PERRLA, EOMI, Mucous membrane moist/pink Respiratory: Clear to auscultation, Normal air movement Cardiovascular: Regular rate, Normal S1, Normal S2, No murmurs, no chest wall tenderness Abdominal: Normal bowel sounds, Soft, No tenderness, No hepatosplenomegaly, No masses Rectal Exam: Small globe likely tag(hemorrhoid) visible on the Anus which is slight purple, irreducible, rectal tone is normal, no masses palpable inside the rectum, collected stool for the FOB Extremities: No clubbing, No cyanosis, No edema, Normal pulses, No tenderness/swelling Skin: No rashes, No breakdown, No significant lesion laboratory and microbiology Laboratory Tests 01/12/24 08:44 Test 01/12/24 08:44 Range/Units Serum Glucose 95 74-106 mg/dL Labs and/or images reviewed: Labs reviewed by me, Image(s) reviewed by me Problem List/Assessment/Plan Problem List/Assessment/Plan Rectal bleeding likely External hemorrhoids Prolapse thrombosed hemorrhoid Rectal Exam showed Small globe likely tag(hemorrhoid) visible on the Anus which is slight purple, irreducible, rectal tone is normal, no masses palpable inside the rectum, Surgery is on the board, conservative management failed, left external thrombosed hemorrhoidectomy performed Continue Laxative Topical lidocaine Uncontrolled hypertension, currently controlled Continue lisinopril 10 mg daily Injection labetalol 10 mg q.2 hours p.r.n. Hypothyroidism Continue levothyroxine Vitamin-D deficiency Supplemented Vitamin B12 deficiency Supplement Left adnexal cystic lesion measuring 1.[address] scan finding follow up on outpatient basis Multiple bilateral renal cysts CT scan finding Patient outpatient basis Nonobstructing punctate left intrarenal calculus CT scan finding Diet Clear liquid diet Stress ulcer prevention Protonix DVT prophylaxis Due to bleeding, Lovenox was not indicated SCD Code status Full Code Case discussed with Dr. Saldivar Plan discussed with: Patient, Other (RN) SUKHJINDER BHATT RESDIENT Jan 12, 2024 17:38
[2024-01-12] MEDS ORDERED: LABETALOL HCL 20 MG/4 ML VL IV PRN (17:45)
[2024-01-12] MEDS: IBUPROFEN 400 MG TAB PO PRN (18:55)
[2024-01-12] MEDS: IBUPROFEN 100MG/5ML ORAL SUSP 100 MG/5 ML UD PO ONE (18:55)
[2024-01-12] MEDS: diphenhdrAMINE HCL 50 MG/1 ML VL IM ONE (18:56)
[2024-01-13 00:54] VITALS: BP 103/60; PULSE 74; RESP 18; TEMP 98.7; O2SAT 94
[2024-01-13 05:00] VITALS: BP 113/70; PULSE 61; RESP 18; TEMP 98.2; O2SAT 98
[2024-01-13] MEDS: DOCUSATE SOD 100 MG CAP PO PRN (06:33)
[2024-01-13] MEDS: LEVOTHYROXINE SODIUM 50 MCG TAB PO SCH (06:34)
[2024-01-13 08:00] VITALS: RESP 18
[2024-01-13 09:00] VITALS: BP 122/70; PULSE 54; RESP 16; TEMP 97.9; O2SAT 98
[2024-01-13 09:17] LABS: Hepatitis B Surface Antigen Negative (Negative)
[2024-01-13 09:38] LABS: Hepatitis A Ab IgM Negative
[2024-01-13 09:39] LABS: Hepatitis B Core IgM Negative
[2024-01-13 09:40] LABS: Hepatitis C Antibody Negative (Negative)
[2024-01-13 13:00] VITALS: BP 144/72; PULSE 60; RESP 16; TEMP 98.1; O2SAT 93
--- NOTE | 2024-01-13 16:07 | DVHDSRES ---
Discharge Summary Date of Admission Resident Creating Document: SUKHJINDER BHATT RESDIOPHELIA Jan 09, 2024 at 21:19 Date of Discharge: Jan 13, 2024 Admitting Diagnosis Rectal bleeding Wounds: Rectal surgical wound Labs/Diagnostic Data: Laboratory Results Test 01/12/24 08:44 01/10/24 14:36 01/10/24 13:56 01/10/24 11:15 White Blood Count 5.2 10^3/uL (4.4-10.8) Red Blood Count 4.91 10^6/uL (4.0-5.20) Hemoglobin 15.2 g/dL (12.2-16.2) Hematocrit 44.6 % (36.0-46.0) Mean Corpuscular Volume 90.8 fL (80.0-100.0) Mean Corpuscular Hemoglobin 30.9 pg (28.0-32.0) Mean Corpuscular Hemoglobin Concent 34.1 g/dL (32.0-36.0) Red Cell Distribution Width 12.9 % (11.8-14.3) Platelet Count 249 10^3/uL (140-450) Mean Platelet Volume 7.6 fL (6.9-10.8) Neutrophils (%) (Auto) 64.3 % (37.0-80.0) Lymphocytes (%) (Auto) 27.4 % (10.0-50.0) Monocytes (%) (Auto) 7.1 % (0.0-12.0) Eosinophils (%) (Auto) 0.6 % (0.0-7.0) Basophils (%) (Auto) 0.6 % (0.0-2.0) Neutrophils # (Auto) 3.3 10 ^3/uL (1.6-8.6) Lymphocytes # (Auto) 1.4 10 ^3/uL (0.4-5.4) Monocytes # (Auto) 0.4 10 ^3/uL (0-1.3) Eosinophils # (Auto) 0 10 ^3/uL (0-0.8) Basophils # (Auto) 0 10 ^3/uL (0-0.2) Nucleated Red Blood Cells 0.2 % Sodium Level 140 mmol/L (136-145) Potassium Level 3.9 mmol/L (3.5-5.1) Chloride Level 107 mmol/L (98-107) Carbon Dioxide Level 27 mmol/L (20-31) Anion Gap 6 (5-15) Blood Urea Nitrogen 15 mg/dL (9-23) Creatinine 0.83 mg/dL (0.550-1.02) Glomerular Filtration Rate Calc 70 mL/min (>90) BUN/Creatinine Ratio 18.1 (10.0-20.0) Serum Glucose 95 mg/dL (74-106) Calcium Level 9.4 mg/dL (8.7-10.4) Total Bilirubin 1.1 mg/dL (0.2-1.0) Aspartate Amino Transferase (AST) 17 U/L (13-40) Alanine Aminotransferase (ALT) 14 U/L (7-40) Alkaline Phosphatase 62 U/L (46-116) Total Protein 6.9 g/dL (5.7-8.2) Albumin 4.0 g/dL (3.2-4.8) Urine Color Light-yellow (Yellow) Urine Clarity Clear (Clear) Urine pH 6.0 (5.0-9.0) Urine Specific [place] 1.007 (1.001-1.035) Urine Protein Negative (Negative) Urine Ketones Negative (Negative) Urine Blood Negative /uL (Negative) Urine Nitrite Negative (Negative) Urine Bilirubin Negative (Negative) Urine Urobilinogen Normal mg/dL (Negative) Urine Leukocyte Esterase Negative /uL (Negative) Urine RBC <1 /hpf (0 - 4) Urine WBC <1 /hpf (0 - 5) Urine Squamous Epithelial Cells None seen /hpf (<5) Urine Bacteria None seen /hpf (None Seen) Urine Glucose Normal mg/dL (Normal) Urine Opiates Screen Neg (NEGATIVE) Urine Fentanyl Screen Neg (NEGATIVE) Urine Barbiturates Screen Neg (NEGATIVE) Urine Phencyclidine Screen Neg (NEGATIVE) Urine Amphetamines Screen Neg (NEGATIVE) Urine Benzodiazepines Screen Neg (NEGATIVE) Urine Cocaine Screen Neg (NEGATIVE) Urine Cannabinoids Screen Neg (NEGATIVE) Direct Bilirubin 0.2 mg/dL (<0.3) Hemoglobin A1c 5.5 % A1C (<5.7) Vitamin B12 Level 434 pg/mL (211-911) Vitamin D 25-Hydroxy 34.9 ng/mL (30.0-100) Thyroid Stimulating Hormone (TSH) 4.32 uIU/mL (0.55-4.78) Hepatitis A IgM Antibody Negative Hepatitis B Surface Antigen Negative (Negative) Hepatitis B Core IgM Antibody Negative Hepatitis C Antibody Negative (Negative) Test 01/10/24 06:00 01/09/24 11:20 Stool Occult Blood Negative (Negative) Stool Occult Blood Sample #3 (Negative) Prothrombin Time 10.7 sec (9.3-11.8) Prothrombin Time INR 1.01 (0.9-1.15) Activated Partial Thromboplast Time 25.4 SEC (24.5-34.5) B-Type Natriuretic Peptide 57.66 pg/mL (0-100) Other Laboratory Tests 01/12/24 08:44 Brief Hx & Hospital Course: EDWIN VALENTIN is an 83-year-old female with a PMH of HTN, CKD, HLD, CHF, and thyroid disorder status post thyroidectomy. She presented to the ED with the chief complaints of rectal bleeding and pain during defecation for the past 2 weeks. According to the patient, she had one episode of bright bleeding during stool passage 2 weeks ago but has had pain in the perineal area, which increases during defecation. The patient denies abdominal pain, fever, chills, nausea, vomiting, diarrhea, and other acute associated symptoms. Past Medical History: HTN, CKD, HLD, CHF, and thyroid disorder status post thyroidectomy Past Surgical History: Thyroidectomy Family History: Noncontributory Social History: Lives alone at home, denies smoking, alcohol, and any other drug use Home Medications: Lisinopril 10 mg, levothyroxine 50 mcg Allergic History: Allergic to acetaminophen and hydrocodone On examination, there was a painful purple-colored bulging and annular area. During admission to the ED, vital signs were within normal limits except for BP 150/91. Lab studies showed bilirubin at 1.4, otherwise, the rest of the studies, including CBC, CMP, coagulation profile, urinalysis, urine drug screen, and stool occult blood, were within normal limits. A CT scan showed no acute abdominal or pelvic findings but revealed a left adnexal cystic lesion measuring 1.5 cm, multiple bilateral renal cysts, and a nonobstructing punctate left intrarenal calculus. A pelvic ultrasound showed a left adnexal cystic lesion measuring 1.7 cm. The chest X-ray was normal. Patient was admitted to the hospital for the treatment of external thrombosed hemorrhoids. During hospital admission the patient was put on local lidocaine for the perianal pain. Surgery was consulted, reduced manually the the hemorrhoid, prolapsed back on due to recurrent prolapse surgical thrombectomy was performed. After the surgery there was no complication including hemorrhage, hematoma, or any other local infection. On 01/13/2024 the patient was feeling better since admission. There was no acute complication on the surgical area, including swelling, and and proportional pain. Discharge plan discussed with the patient and the patient discharged on home medication and Colace for the constipation. The patient was recommended to follow up with the PCP within 1 week of discharge. Examination on the day of discharge: General Appearance: An elderly female lying on the bed with stress due to pain HEENT: Atraumatic, PERRLA, EOMI, Mucous membrane moist/pink Respiratory: Clear to auscultation, Normal air movement Cardiovascular: Regular rate, Normal S1, Normal S2, No murmurs, no chest wall tenderness Abdominal: Normal bowel sounds, Soft, No tenderness, No hepatosplenomegaly, No masses Rectal Exam: Declined Extremities: No clubbing, No cyanosis, No edema, Normal pulses, No tenderness/swelling Skin: No rashes, No breakdown, No significant lesion Discussed with Dr. Woo Consults/Reason for consult Surgery: External thrombosed hemorrhoid Operations or Procedures Patient: EDWIN VALENTIN Acct: [id number] : 1940 Loc: [facility], [place] Age/Sex: 83/F Room: [facility] / Bed: A Attending Phy: IGNACIA MORALES RESIDENT DATE OF SURGERY: 01/12/2024 PREOPERATIVE DIAGNOSES: Thrombosed external hemorrhoid on the left side. POSTOPERATIVE DIAGNOSES: Thrombosed external hemorrhoid on the left side. PROCEDURE: Examination under anesthesia with hemorrhoidectomy of the thrombosed hemorrhoid in the left side. SURGEON: Ayaan Meneses MD ADMINISTRATIVE OPERATIONS COORDINATOR: None. ANESTHESIA: Local IV sedation. DESCRIPTION OF PROCEDURE: The patient was prepped and draped in the usual sterile fashion in the lithotomy position. Lidocaine was infiltrated in the vicinity circumferentially around the anal opening and the thromboid mass was noted on the left side was grasped with a pickup and transected at the base using the LigaSure device and submitted for pathology. The mucosal edges were brought together using a 3-0 Vicryl suture in interrupted fashion. Xeroform packing was applied with Neosporin and lidocaine and the patient tolerated the procedure well and was taken back to the recovery room in a stable condition. Ayaan Meenses MD RG/RUB TID: [id number] RECEIPT: [id number] cc: Pepe Saldivar DICTATED BY:AYAAN MENESES MD DICTATED DATE/TIME:01/12/24 1210 ELECTRONICALLY SIGNED BY: ELECTRONICALLY CO-SIGNED BY: Condition at Discharge: Stable Final Diagnosis/Problems List Rectal bleeding and pain due to External thrombus hemorrhoids Prolapse thrombosed hemorrhoid Essential hypertension Rule out hypertensive urgency Hypothyroidism Vitamin-D deficiency Vitamin B12 deficiency Left adnexal cystic lesion measuring 1.5 cm Multiple bilateral renal cysts Nonobstructing punctate left intrarenal calculus Discharge Disposition: Home Discharge Instruct/Medications Diet: Cardiac 2g Na,low cholest, See Comment (To increase fiber intake) Activity: No Restrictions, As Tolerated Follow Up/Referral: follow with your PCP within one week after discharge. Medications: Continue home medication. Discharge Statement: "Patient was advised to return to the ER or call 911 if any headaches, dizziness, shortness of breath, chest pain, abdominal pain, bleeding, fevers, or worsening of medical condition. Patient was counseled about treatment plan, medications, possible side effects, patientverbalized understanding. All questions were answered to the best of my ability. This discharge took greater then 30 minutes in planning, reviewing documentation, counseling the patient, and discussing with other team members." ASSESSMENT ASSESSMENT Assessment Addendum Addendum Addendum I was physically present for the jarrell portions of the service provided to patient by THE RESIDENT. I have reviewed the documentation, discussed the case with resident and agree with the resident's documentation except as noted. Also the patient's clinical case was discussed with the patient's nurse. This medical document was created using an electronic medical record system with computerized dictation system. Although this document has been carefully reviewed, there might still be some phonetic and typographical errors. These areas are purely typographical due to imperfections of the software programs, and do not reflect any compromise in the patient's medical care. Late signature. Date of Service: Jan 13, 2024 Billing Provider: SACHA WOO MD Common Visit Codes: 58480-ZPO/OBS DISCH DAY >30min SUKHJINDER BHATT Jan 13, 2024 16:07 SACHA WOO MD Jan 14, 2024 11:32
[2024-01-13] MEDS ORDERED: DOCU-265 PO (16:36)
== END 2024-01-13 17:30 | disposition home or self-care (01) | DRG 348 ==
LOC: ER 10:12 → OVERFLOW 21:19 → WEST WING 21:22 → ER 21:25 → WEST WING 01-10 03:05
PROVIDERS: ADMIT Internal Medicine; ATTEND Internal Medicine
PROC: 06BY0ZC Excision of Hemorrhoidal Plexus, Open Approach (ICD-10-PCS; principal; 2024-01-12 13:34)
DX: K64.5 Perianal venous thrombosis (principal); I13.0 Hypertensive heart and chronic kidney disease with heart failure and stage 1 through stage 4 chronic kidney disease, or unspecified chronic kidney disease; K64.8 Other hemorrhoids; I16.0 Hypertensive urgency; E78.5 Hyperlipidemia, unspecified; I50.9 Heart failure, unspecified; N18.9 Chronic kidney disease, unspecified; E03.9 Hypothyroidism, unspecified; E55.9 Vitamin D deficiency, unspecified; E53.8 Deficiency of other specified B group vitamins; N28.1 Cyst of kidney, acquired; Z88.5 Allergy status to narcotic agent; Z88.6 Allergy status to analgesic agent
CPT/HCPCS: 36415; 71045; 74176; 76856; 80048; 80053; 80074; 80076; 80307; 81001; 82270; 82306; 82607; 83036; 83880; 84443; 85025; 85610; 85730; 96360; G0378; J2003; J2405; J2470; J2704